=== PATIENT | male | born 1960 | race African-American/Black ===

== ENCOUNTER → 2017-07-16 | Outpatient (CLI) | payer OTHER | END | disposition home or self-care (01) | LOC: RADPV 09:59 | PROVIDERS: ATTEND Hospitalist | DX: N18.5 Chronic kidney disease, stage 5 (principal) | CPT/HCPCS: 76770 ==

== ENCOUNTER 2021-07-07 12:27 | Emergency (ER) | payer MEDICARE, OTHER ==
[~2021-07-07] VITALS: Ht 172.7 cm; Wt 100.0 kg
[2021-07-07] MEDS ORDERED: PIPERACILLIN SODIUM/TAZOBACTAM 4.5 GM in DEXTROSE 5%-WATER 100 ML IV ONE (13:45)
[2021-07-07] MEDS ORDERED: VANCOMYCIN HCL 1 GM/D5% WATER 200 ML IV ONE (13:45)
[2021-07-07] MEDS ORDERED: MORPHINE SULFATE 2 MG/ML SYRINGE IVP ONE (15:15)
[2021-07-07 15:40] LABS: BASOPHILS % (AUTO) 0.9 % (0.0-2.0); EOSINOPHILS % (AUTO) 3.5 % (1.0-6.0); HEMATOCRIT 28.1 % (41-53); LYMPHOCYTES # (AUTO) 0.5 K/uL (1.0-4.8); LYMPHOCYTES % (AUTO) 8.6 % (22.0-44.0); MEAN CORPUSCULAR VOLUME 94 fL (80-100); MONOCYTES # (AUTO) 0.6 K/uL (0.1-1.0); MONOCYTES % (AUTO) 10.1 % (2.0-9.0); NEUTROPHILS # (AUTO) 4.2 K/uL (1.8-7.7); NEUTROPHILS % (AUTO) 76.9 % (40.0-70.0)
[2021-07-07 15:42] LABS: COVID AG,FIA SOURCE NASOPHARYNGEAL
[2021-07-07 16:02] LABS: CREATININE 12.98 mg/dL (0.60-1.30); POTASSIUM 5.6 mmol/L (3.5-5.1)
[2021-07-07 16:09] LABS: ALBUMIN 3.1 g/dL (3.4-5.0); BILIRUBIN,TOTAL 0.3 mg/dL (0.1-1.0)
[2021-07-07 16:18] LABS: PLATELET COUNT (AUTO) 99 K/uL (150-450); PLATELET MORPHOLOGY COMMENT LARGE PLTS PRESENT
[2021-07-07 17:28] VITALS: BP 161/72
== END 2021-07-07 17:31 | disposition short-term general hospital (02) ==
LOC: EMS 12:56
DX: T81.49XA Infection following a procedure, other surgical site, initial encounter (principal); N48.29 Other inflammatory disorders of penis; Z20.822 Contact with and (suspected) exposure to COVID-19; Y83.8 Other surgical procedures as the cause of abnormal reaction of the patient, or of later complication, without mention of misadventure at the time of the procedure
CPT/HCPCS: 36415; 80053; 85025; 87426; 96365; 96366; 96368; 96375; 99285; J2270; J2543; J3370; J7060

== ENCOUNTER 2022-04-06 23:59 | Emergency (ER) | payer MEDICARE, OTHER ==
[~2022-04-06] VITALS: Ht 180.3 cm; Wt 46.7 kg
[~2022-04-06 23:59] MED LIST: ALLO-97 PO; COSO10OS OU; GABA-1216 PO; GLIP5TAB12 PO; HYDR50TA36 PO; NIFE-40 PO; TRAZ150T80 PO
[2022-04-07 00:44] LABS: BASOPHILS % (AUTO) 1.3 % (0.0-2.0); EOSINOPHILS % (AUTO) 4.9 % (1.0-6.0); HEMATOCRIT 32.7 % (41-53); HEMOGLOBIN 10.4 g/dL (13.5-17.5); LYMPHOCYTES # (AUTO) 0.9 K/uL (1.0-4.8); LYMPHOCYTES % (AUTO) 16.2 % (22.0-44.0); MEAN CORPUSCULAR HEMOGLOBIN 28.7 pg (26.0-34.0); MEAN CORPUSCULAR VOLUME 90 fL (80-100); MONOCYTES # (AUTO) 0.5 K/uL (0.1-1.0); MONOCYTES % (AUTO) 9.6 % (2.0-9.0); NEUTROPHILS # (AUTO) 3.6 K/uL (1.8-7.7); PLATELET COUNT (AUTO) 160 K/uL (150-450); RED BLOOD CELL COUNT(AUTO) 3.64 MIL/uL (4.50-5.90); RED CELL DISTRIBUTION WIDTH 16.9 % (11.5-14.5)
[2022-04-07 01:00] LABS: ALBUMIN 3.2 g/dL (3.4-5.0); BILIRUBIN,TOTAL 0.6 mg/dL (0.1-1.0); CALCIUM, TOTAL 9.6 mg/dL (8.8-10.5); CREATININE 12.83 mg/dL (0.60-1.30); TOTAL PROTEIN, SERUM 7.8 g/dL (6.4-8.2)
[2022-04-07 01:02] LABS: POTASSIUM 6.1 mmol/L (3.5-5.1)
[2022-04-07] MEDS ORDERED: CEPH-558 PO (01:29)
[2022-04-07] MEDS ORDERED: SODIUM POLYSTYRENE SULFONATE 15 GM/60 ML SUSPENSION BOTTLE PO ONE (01:45)
[2022-04-07 05:06] VITALS: BP 159/60
== END 2022-04-07 04:59 | disposition home or self-care (01) ==
LOC: EMS 04-07 00:04
DX: Z47.81 Encounter for orthopedic aftercare following surgical amputation (principal); E11.9 Type 2 diabetes mellitus without complications; I10 Essential (primary) hypertension; N28.9 Disorder of kidney and ureter, unspecified; Z88.2 Allergy status to sulfonamides
CPT/HCPCS: 80053; 85025; 99284